=== PATIENT | female | born 1970 | race Caucasian/White ===

== ENCOUNTER 2020-09-04 15:20 | Outpatient (CLI) | payer BC, SELFPAY ==
[2020-09-04 16:08] LABS: SARS-CoV-2 Ag Negative (Negative)
== END 2020-09-04 15:21 | disposition home or self-care (01) ==
LOC: CHSLAB 15:26
PROVIDERS: PCP Family Medicine; Visit Provider Family Medicine
DX: J02.9 Acute pharyngitis, unspecified (principal); Z20.828 Contact with and (suspected) exposure to other viral communicable diseases
CPT/HCPCS: 87081; 87426; 87880